=== PATIENT | female | born 1945 | race Caucasian/White ===

== ENCOUNTER 2016-09-03 23:50 | Emergency (ER) | payer MEDICARE, OTHER ==
[2016-09-03 23:21] LABS: BASOPHILS 0.2 %; BASOPHILS ABSOLUTE 0.02 10/3/uL (0.0-0.16); EOSINOPHILS 7.6 %; EOSINOPHILS ABSOLUTE 0.77 10/3/uL (0.0-0.53); HEMATOCRIT 40.1 % (36.0-48.0); HEMOGLOBIN 14.1 g/dL (12.0-16.0); IMMATURE GRANULOCYTES 0.5 %; IMMATURE GRANULOCYTES ABSOLUTE 0.05 10/3/uL (0.0-0.11); LYMPHOCYTES 19.2 %; LYMPHOCYTES ABSOLUTE 1.95 10/3/uL (0.67-4.30); MEAN CORPUS HGB CONC 35.2 g/dL (32.0-36.0); MEAN CORPUSCULAR HEMOGLOB 30.7 pg (26.0-34.0); MEAN PLATELET VOLUME 9.3 fL (9.2-13.0); MONOCYTES 5.9 %; NEUTROPHILS 66.6 %; NEUTROPHILS ABSOLUTE 6.75 10/3/uL (2.02-8.40); PLATELET COUNT 169 10/3/uL (150-400); RBC DISTRIBUTION WIDTH 12.5 % (12.0-16.0); WHITE BLOOD CELLS 10.1 10/3/uL (4.5-10.5)
[2016-09-03 23:22] LABS: ER CBC TAT 0 Hrs 09 MinsNP; MANUAL DIFF NO %; MEAN CORPUSCULAR VOLUME 87.2 fL (80-100)
[2016-09-03 23:37] LABS: A/G RATIO 0.8 (0.7-1.9); ALBUMIN 3.4 G/DL (3.5-5.0); BUN (BLOOD UREA NITROGEN) 10 MG/DL (6-23); CALCIUM, SERUM 9.3 MG/DL (8.5-10.4); CHLORIDE, SERUM 103 MMOL/L (96-112); CO2 (CARBON DIOXIDE) 23 MMOL/L (24-34); CREATININE 0.84 MG/DL (0.55-1.02); GFR AFRICAN AMERICAN 81 ML/MIN (>=60); GFR NON AFRICAN AMERICAN 70 ML/MIN (>=60); GLOBULIN 4.5 G/DL (2.5-4.1); POTASSIUM, SERUM 3.9 MMOL/L (3.5-5.3); SGOT(AST) 21 U/L (5-40); SGPT(ALT) 23 U/L (5-65); SODIUM, SERUM 136 MMOL/L (135-148); TOTAL BILIRUBIN 0.6 MG/DL (0-1.2); TOTAL PROTEIN 7.9 G/DL (6.0-8.5)
[2016-09-03 23:38] LABS: ALKALINE PHOSPHATASE 72 U/L (45-117); GLUCOSE, SERUM 242 MG/DL (60-99)
[~2016-09-03 23:50] MED LIST: ADVAIR250 INH; AMB10 PO; AMIT100 PO; ARICEPT5 PO; CELEBREX2 PO; DIPROLENE AF0.05 % TOP; GLUCOPHXR PO; HYZAAR 50/12.51 TAB PO; KDUR20 PO; L40 PO; LANTUS SC; LANTUSCART SC; MCZ25 PO; MOBIC15 MG PO; NAMENDA10 MG PO; NASONEX NAS; NEUR600 PO; NYS500UDL PO; P125 PO; PCET PO; PR25 PO; PRAVACHOL40 MG PO; PROAIR HFA INH; PROTONIX PO; PROVHFA INH; PROZAC40 MG PO; SINGULAIR1 PO; TIMOPTIC0.5 % OP; TRAVATAN OPH; ULTRAM50 PO; X5 PO
== END 2016-09-04 02:47 | disposition home or self-care (01) ==
LOC: ER 23:50
PROVIDERS: Hospitalist
DX: R09.81 Nasal congestion (principal); I10 Essential (primary) hypertension; Z87.891 Personal history of nicotine dependence; J45.909 Unspecified asthma, uncomplicated; E11.9 Type 2 diabetes mellitus without complications; Z88.8 Allergy status to other drugs, medicaments and biological substances; Z88.5 Allergy status to narcotic agent; Z79.899 Other long term (current) drug therapy
CPT/HCPCS: 71020; 80053; 83880; 85025; 87040; 93005; 99284; A9270-GY